=== PATIENT | male | born 1960 | race Caucasian/White ===

== ENCOUNTER 2019-10-22 02:42 | Inpatient (IN) | payer BC ==
[~2019-10-22] VITALS: Ht 177.8 cm; Wt 121.6 kg
[2019-10-22 02:48] VITALS: BP_SYST 144
--- NOTE | 2019-10-22 02:48 | NUR ---
Pt BIB BLS from [facility] and placed to ER bed 04. Pt sent for PICC line replacement. Reported that pt pulled out PICC to LUE 1 hour RUBBER WASHER. Dsg to site, no active bleeding noted. Pt alert, responsive, respirations even, mildly labored with expiratory wheezing noted, SPO2 94% RA. G-Tube in place. Pt denies c/o pain or discomfort and denies SOB. Pt only able to answer yes/no questions with nodding as this is pts reported baseline. Pt has hx of traumatic subarachnoid hemorrage. No needs verbalized at this time. Pt report given to ANDRA Rodriguez.
--- NOTE | 2019-10-22 03:10 | NUR ---
Dr. Emmanuel at bedside.
[2019-10-22] MEDS ORDERED: NACL 0.9% 1,000 ML IV ONE (03:15)
--- NOTE | 2019-10-22 03:15 | NUR ---
Spoke with pts , Romelia ([phone]) and updated on pt status. Romelia states that his cognitive status has been improving and he's been able to speak, but mostly non-verbal. Romelia states that the PICC line was initially placed r/t difficulty in obtaining IV access. Dr. Emmanuel made aware.
--- NOTE | 2019-10-22 03:15 | NUR ---
Note marita in EDM - 10/22/19 at 0607 by [email or web address] Spoke with pts , Romelia ([phone]) and updated on pt status. Romelia states that his cognitive status has been improving and he's been able to speak, but mostly non-verbal. Romelia states that the PICC line was initially placed r/t difficulty in obtaining IV access. Dr. Emmanuel made aware.
--- NOTE | 2019-10-22 03:25 | NUR ---
Lab at bedside.
--- NOTE | 2019-10-22 03:40 | NUR ---
SPO2 88% RA. Pt repositioned in bed and SPO2 increases to 93%. Dr. Emmanuel notified. No new orders.
[2019-10-22 03:46] LABS: BASOPHILS % (AUTO) 0.5 % (0.0-2.0); EOSINOPHILS # (AUTO) 0.2 K/uL (0.0-0.4); EOSINOPHILS % (AUTO) 1.8 % (0.0-4.0); HEMATOCRIT 36.5 % (36-54); HEMOGLOBIN 11.9 g/dL (14.0-18.0); LYMPHOCYTES # (AUTO) 1.6 K/uL (1.0-5.5); LYMPHOCYTES % (AUTO) 14.5 % (20.5-51.5); MEAN CORPUSCULAR HEMOGLOBIN 30 pg (27-31); MEAN CORPUSCULAR HGB CONC 33 % (32-36); MEAN CORPUSCULAR VOLUME 93 fL (79.0-98.0); MONOCYTES # (AUTO) 0.7 K/uL (0.0-1.0); NEUTROPHILS # (AUTO) 8.1 K/uL (1.8-7.7); NEUTROPHILS % (AUTO) 76.2 % (40.0-70.0); PLATELET COUNT (AUTO) 239 K/uL (130-430); RED BLOOD CELL COUNT(AUTO) 3.92 MIL/uL (4.2-6.2); RED CELL DISTRIBUTION WIDTH 14.9 % (9.0-15.0); WHITE BLOOD COUNT (AUTO) 10.7 K/uL (4.8-10.8)
[2019-10-22 04:03] LABS: CALCIUM 8.6 mg/dL (8.4-11.0); CREATININE 0.52 mg/dL (0.55-1.30)
[2019-10-22 04:09] LABS: ALBUMIN 2.6 g/dL (3.4-4.8); TOTAL BILIRUBIN 0.3 mg/dL (0.0-1.0)
--- NOTE | 2019-10-22 04:40 | NUR ---
Pt denies c/o pain or discomfort, no needs verbalized at this time. B/P 146/79, P 93, R 28, T 98.4, SPO2 94% RA. Dr. Emmanuel made aware of V/S.
[2019-10-22] MEDS ORDERED: IPRATROPIUM/ALBUTEROL SULFATE 3 ML AMPUL.NEB (DUONEB) INH ONE (04:45)
--- NOTE | 2019-10-22 05:15 | NUR ---
# 16 FR Nath catheter with use of sterile technique. Immediate return of 200 cc dharmesh urine noted. Bedside drainage bag placed below level of bladder. Urine sample collected and sent to lab. Pt tolerated procedure fair. Patient unable to toilet self.
[2019-10-22 05:25] LABS: BILIRUBIN,URINE NEGATIVE (NEGATIVE); BLOOD, URINE 2+ (NEGATIVE); CLARITY/URINE CLEAR (CLEAR); COLOR,URINE YELLOW (YELLOW); GLUCOSE,URINE NEGATIVE (NEGATIVE); KETONES,URINE NEGATIVE (NEGATIVE); LEUKOCYTE ESTERASE ,URINE NEGATIVE (NEGATIVE); NITRITE, URINE NEGATIVE (NEGATIVE); PH,URINE 7.5 (5.0-8.0); PROTEIN URINE NEGATIVE (NEGATIVE); UROBILINOGEN,URINE 0.2 (0.2-1.0)
[2019-10-22] MEDS ORDERED: PIPERACILLIN/TAZO 3.375 GM in NS 50 ML IV ONE (06:00)
[2019-10-22 06:18] LABS: BACTERIA,URINE FEW /HPF (None Seen); RBC,URINE 20-50 /HPF (0-3); WBC,URINE 0-3 /HPF (0-3)
--- NOTE | 2019-10-22 06:25 | NUR ---
Patient was turned and cleaned. New gown applied. Pt resting in bed, VSS. Will continue to monitor.
[2019-10-22] MEDS ORDERED: PIPERACILLIN/TAZOBACTAM 3.375 GM/VIAL (ZOSYN) IV ONE (06:34)
[2019-10-22] MEDS ORDERED: AZITHROMYCIN 500 MG in NS 250 ML IV ONE (06:45)
--- NOTE | 2019-10-22 06:45 | NUR ---
Dr. Emmanuel notified about pts SPO2 93%. Verbal order received to place pt on O2 at 2 LPM/NC.
[2019-10-22] MEDS ORDERED: AZITHROMYCIN 500 MG/VIAL (ZITHROMAX) IV ONE (07:08)
--- NOTE | 2019-10-22 07:39 | NUR ---
Patient will be admitted to care of [facility]. Admitted to MED SURG unit. Will go to room 134A. Belongings list completed. Complete and up to date summary report printed. SBAR report to be given at bedside with opportunity for questions.
--- NOTE | 2019-10-22 08:30 | NUR ---
Medication reconciliation completed with information provided by FACILITY. Any prior medication reconciliation on file was reviewed and corrected.
--- NOTE | 2019-10-22 08:42 | NUR ---
ADMIT NOTE Received pt from ER to the floor with a diagnosis of PICC LINE PLACEMENT/LEUKOCYTOSIS. Admission process initiated. patient oriented to pain management, safety and call light-teach back done.
[2019-10-22] MEDS ORDERED: TAMS-11 GT (08:45)
[2019-10-22] MEDS ORDERED: AZTR1VIA2 IV (08:45)
[2019-10-22] MEDS ORDERED: TYLL650 GT (08:45)
[2019-10-22] MEDS ORDERED: ALBU2.5V7 INH (08:45)
[2019-10-22] MEDS ORDERED: DOCU-144 GT (08:45)
[2019-10-22] MEDS ORDERED: HYDC2.5% TP (08:48)
[2019-10-22] MEDS ORDERED: IPRA4AER INH (08:48)
[2019-10-22] MEDS ORDERED: PRED10TA GT (08:54)
[2019-10-22] MEDS ORDERED: PANT40SU2 GT (08:54)
[2019-10-22] MEDS ORDERED: FLAPM500 IV (08:54)
[2019-10-22] MEDS ORDERED: SSREG SUBCUT (08:54)
[2019-10-22] MEDS ORDERED: LEVE500T9 GT (08:54)
--- NOTE | 2019-10-22 09:03 | NUR ---
CONSULTATION PAGED/CALLED Reason for Consultation: LEUKOCYTOSIS Person Who was Notified: DI Consulting Physician: It Consulting Manager Specialty: Ordering Physician:
[2019-10-22 09:04] VITALS: BP_SYST 114
[2019-10-22] MEDS ORDERED: INSULIN REGULAR, HUMAN 100 UNITS/ML, 10 ML VIAL (humuLIN R) SUBCUT PRN (09:30)
[2019-10-22] MEDS ORDERED: ACETAMINOPHEN 650 MG/20.3 ML UDC GT PRN (09:30)
[2019-10-22] MEDS ORDERED: ACETAMINOPHEN 325 MG TABLET GT PRN (09:30)
[2019-10-22] MEDS ORDERED: HYDROcodone/ACETAMIN 5-325 MG TAB (NORCO/ VICODIN) GT PRN (09:30)
[2019-10-22] MEDS ORDERED: ONDANSETRON HCL 4 MG/2 ML VIAL IVP PRN (09:30)
[2019-10-22] MEDS ORDERED: ALBUTEROL SULFATE 0.083% 2.5 MG/3 ML VIAL.NEB INH PRN (09:30)
[2019-10-22] MEDS ORDERED: HYDROcodone/ACETAMIN 10-325 MG TAB GT PRN (09:30)
[2019-10-22] MEDS ORDERED: LORazepam 2 MG/ML VIAL IVP PRN (09:30)
[2019-10-22 10:04] LABS: INR 1.1 (0.80-1.20); PROTHROMBIN TIME 10.7 SECS (9.5-12.5)
[2019-10-22] MEDS: IPRATROPIUM/ALBUTEROL SULFATE 3 ML AMPUL.NEB (DUONEB) INH SCH ×4 (11:23→22:00)
[2019-10-22 11:27] VITALS: BP_SYST 114
[2019-10-22 12:50] VITALS: BP_SYST 112
--- NOTE | 2019-10-22 13:45 | NUR ---
PICC LINE NURSE Spoke with Jose Alfredo SILVERMAN, the PICC Line nurse and informed him that the informed consent was signed. He stated he will be here soon.
[2019-10-22] MEDS ORDERED: PIPERACILLIN/TAZO 3.375 GM in NS 50 ML IV SCH (14:00)
[2019-10-22] MEDS ORDERED: NORMAL SALINE 5 ML DISP.SYRIN IVF SCH (14:00)
--- NOTE | 2019-10-22 15:35 | NUR ---
WOUND EVALUATION: Wound Consult received from Dr. Irvin Ochoa. Thank you Dr. Ochoa for the consult. Patient received in a Guadalupe Bed with an IsoFlex YULIET mattress, awake, alert, oriented, limited verbal interaction. 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 Past Medical History: Subarachnoid Hemorrhage, Diabetes Mellitus, Seizure Disorder, Benign Prostatic Hypertrophy. Recent Labs: CBC 10.7, RBC 3.92, hemoglobin 11.9, hematocrit 36.5, BUN 13, creatinine 0.52, GFR 172, glucose 106, POC glucose 103, AST 41, albumin 2.6, PTT 24.7. Microbiology: Blood culture results x2 in progress. Intrinsic factors that delay wound healing: Diabetes Mellitus, CVA, Hypoalbuminemia. Extrinsic factors that delay wound healing: Decreased mobility. Wound Assessment: 1. Left Kate-Rectal area: Recent surgical site, present on admission. Site was closed with blue sutures, with one small area that is open. Open area of incision has 100% white tissue. No odor, no drainage. Kate-wound intact. Measures 1.5 cm x 0.5 cm x 0.7 cm. Recommend: Cleanse wound with normal saline. Apply moisture barrier cream to kate-wound. Apply Hydrogel to wound. Pack wound with 1/4 inch Iodoform packing strip. Cover with foam dressing. Perform wound care daily, and as needed for dressing soiling or dislodgement. 2. Sacral area: Deep excoriation. Patient scratched and dug area with his hand, causing the wound before his hand could be pulled away. Wound bed has 100% red tissue. No odor, no drainage. Kate-wound intact. Measures 1.5 cm x 1.4 cm. Recommend: Cleanse wound with normal saline. Apply moisture barrier cream to wound and kate-wound. Apply Hydrogel to any portion of wound that is not covered by moisture barrier cream. Cover with foam dressing. Perform wound care daily, and as needed for dressing soiling or dislodgement. Also recommend: Reposition patient side to side only every 2 hours with pillow support and off-load pressure areas with pillows for pressure re-distribution. Offload, elevate and float bilateral heels with pillows. Perform skin care and monitor skin integrity Q shift. Use moisture barrier cream on buttocks and other moisture susceptible areas QID and as needed for soiling. Initiate low air-loss therapy.
--- NOTE | 2019-10-22 16:00 | NUR ---
WOUND CARE WITH TECHNICIAN SUBMARINE CABLE EQUIPMENT * Left Annabelle-Rectal area: Pt had recent rectal surgery and the site was closed with blue sutures, with one small area that is open. The open area of incision has 100% white tissue, no odor, no drainage. Annabelle-wound intact. Measures 1.5 cm x 0.5 cm. Wound cleansed with normal saline. Moisture barrier cream applied to annabelle-wound. Hydrogel applied to wound bed and packed with 1/4 inch Iodoform packing strip. Covered with a foam dressing. Sacral area: Deep excoriation. Patient scratched and dug area with his hand, causing the wound before his hand could be pulled away. Wound bed has 100% red tissue. No odor, no drainage. Annabelle-wound intact. Measures 1.5 cm x 1.4 cm. Wound cleansed with normal saline. Moisture barrier cream applied to wound and annabelle-wound area. Hydrogel applied to any portion of wound that is not covered by moisture barrier cream. Covered with a foam dressing. Pt also placed onto low air loss mattress and repositioned with pillow support and bilat heels off-loaded for skin care. Pt tolerated well. All precautions remain in place.
[2019-10-22 16:41] VITALS: BP_SYST 116
[2019-10-22] MEDS: NORMAL SALINE 5 ML DISP.SYRIN IVF SCH ×2 (16:55→22:59)
[2019-10-22] MEDS: AZTREONAM 1 GM in NS 50 ML IV SCH ×2 (16:56→22:58)
[2019-10-22] MEDS: metroNIDAZOLE 500 mg/NS 100 ML IV SCH ×2 (16:56→22:57)
[2019-10-22 20:00] VITALS: BP_SYST 116
--- NOTE | 2019-10-22 20:00 | NUR ---
RECEIVED PT IN BED V/S AND ASSESSMENT DONE ,PM CARE GIVEN REPOSITIONED MADE COMFORTABLE ,PT AND FAMILY AWAITING OICC LINE INSERTION,WAITING ON PICC LINE NURSE,IV MEDS GIVEN G TUBE WITH GLUCERNA 1.5 @40 CC.
--- NOTE | 2019-10-22 20:36 | NUR ---
DIET/G-TUBE/PICC LINE Per the pt's Adia the pt has been eating finely ground foods at [facility] and does use the G-Tube part of the time to meet the pt's nutritional need. I called [facility] and spoke with Roger SILVERMAN regarding the pt's diet vs G-Tube per pt's request. She stated that she remembers him eating finely ground foods and having Glucerna 1.5 via G-tube for 12 hours to supplement the pt's nutrition, unfortunately she was unable to fax me the diet order from the facility that stated he was on that diet. The paperork we received only states the enteral feeding of Glucerna 1.5 at 40 ml/hr via g-tube. Adia was also upset that the pt has not received the PICC line yet since the pt has been here since this morning. I informed her that I spoke with Biju SILVERMANarchitect in training here who reassured me that Jose Alfredo the PICC line nurse will be here zaina. I called and spoke with the pt's Adia regarding this issue and the pt's diet issue and she stated she understood and that she hopes that her gets the PICC line inserted tonight so that he can go back to the facility and continue his rehabilitation.
[2019-10-22] MEDS: HYDROCORTISONE 2.5%, 30 GM TOPICAL CREAM TP SCH (21:00)
[2019-10-22] MEDS: LevETIRAcetam 500 MG/5 ML UDC ORAL LIQUID GT SCH (21:00)
[2019-10-22] MEDS ORDERED: TAMSULOSIN HCL 0.4 MG CAP GT SCH (21:00)
[2019-10-23 00:23] VITALS: BP_SYST 116
[2019-10-23] MEDS: metroNIDAZOLE 500 mg/NS 100 ML IV SCH ×3 (05:52→22:54)
[2019-10-23] MEDS: NORMAL SALINE 5 ML DISP.SYRIN IVF SCH ×3 (05:56→22:54)
[2019-10-23] MEDS: AZTREONAM 1 GM in NS 50 ML IV SCH ×3 (05:57→21:45)
[2019-10-23 06:33] LABS: BASOPHILS % (AUTO) 0.4 % (0.0-2.0); EOSINOPHILS # (AUTO) 0.3 K/uL (0.0-0.4); EOSINOPHILS % (AUTO) 2.4 % (0.0-4.0); HEMATOCRIT 34.3 % (36-54); HEMOGLOBIN 11.1 g/dL (14.0-18.0); LYMPHOCYTES % (AUTO) 8.9 % (20.5-51.5); MEAN CORPUSCULAR HEMOGLOBIN 30 pg (27-31); MEAN CORPUSCULAR HGB CONC 32 % (32-36); MEAN CORPUSCULAR VOLUME 94 fL (79.0-98.0); MONOCYTES # (AUTO) 0.6 K/uL (0.0-1.0); MONOCYTES % (AUTO) 5.1 % (1.7-9.3); NEUTROPHILS # (AUTO) 9.4 K/uL (1.8-7.7); NEUTROPHILS % (AUTO) 83.2 % (40.0-70.0); PLATELET COUNT (AUTO) 254 K/uL (130-430); RED BLOOD CELL COUNT(AUTO) 3.66 MIL/uL (4.2-6.2); RED CELL DISTRIBUTION WIDTH 15.3 % (9.0-15.0); WHITE BLOOD COUNT (AUTO) 11.3 K/uL (4.8-10.8)
[2019-10-23] MEDS: IPRATROPIUM/ALBUTEROL SULFATE 3 ML AMPUL.NEB (DUONEB) INH SCH ×3 (07:12→16:28)
--- NOTE | 2019-10-23 07:15 | NUR ---
OPENING NOTES PT AWAKE, ALERT, AND ORIENTED TIMES ONE. RE-ORIENTED TO TIME AND PLACE. NONLABORED BREATHING NOTED ON ROOM AIR, O2 AT 94%. NO ACUTE DISTRESS NOTED. QURESHI CATHETER INTACT AND PATENT, DRAINING WELL. IV LINE INTACT AND PATENT, NO SIGNS OF INFILTRATION NOTED, FLUIDS RUNNING ORDERED PER MD. G-TUBE INTACT AND PATENT, CHECKED PLACEMENT, 5ML RESIDUAL, TUBE FEEDING RUNNING ORDERED PER MD, TOLERATING WELL HOB ELEVATED. PT DENIES PAIN AT THIS TIME. ALL NEEDS MET. CALL LIGHT IN REACH. FALL AND ASPIRATION PRECAUTIONS IN PLACE. CONTINUE TO MONITOR.
[2019-10-23 07:55] LABS: CALCIUM 8.9 mg/dL (8.4-11.0); CREATININE 0.53 mg/dL (0.55-1.30); POTASSIUM 3.8 mmol/L (3.5-5.1)
[2019-10-23 08:00] VITALS: BP_SYST 113
[2019-10-23] MEDS ORDERED: LANSOPRAZOLE 30 MG CAPSULE.DR GT SCH (09:00)
[2019-10-23] MEDS ORDERED: PREDNISONE 10 MG TABLET GT SCH (09:00)
[2019-10-23] MEDS: LevETIRAcetam 500 MG/5 ML UDC ORAL LIQUID GT SCH ×2 (09:04→20:45)
[2019-10-23] MEDS: HYDROCORTISONE 2.5%, 30 GM TOPICAL CREAM TP SCH ×2 (09:04→20:46)
--- NOTE | 2019-10-23 09:04 | NUR ---
ROUTINE MEDS ROUTINE MEDS ADMINISTERED ORDERED PER MD, EDUCATION GIVEN, TOLERATED WELL. NO ACUTE DISTRESS NOTED. ALL NEEDS MET. CALL LIGHT IN REACH. CONTINUE TO MONITOR.
--- NOTE | 2019-10-23 10:00 | NUR ---
RECEIVED TWO CALLS FROM PICC LINE NURSES, VERBALIZING THEY WILL BE HERE SOON.
--- NOTE | 2019-10-23 10:27 | NUR ---
Nutrition Update Joseph Scale 14 noted. Pt admitted for PICC line replacement and leukocytosis. Diet: Glucerna 1.5 at 40 ml/hr, Free Water Flush: 100 ML Q 6 HR via GT BMI: 38.5 kg/m2 RD to follow per nutrition care standards.
--- NOTE | 2019-10-23 11:53 | NUR ---
WOUND CARE AND PERINEAL CARE DONE WITH ANDRA MITCHELL, EDUCATION GIVEN, TOLERATED WELL.
[2019-10-23 12:00] VITALS: BP_SYST 122
--- NOTE | 2019-10-23 12:31 | NUR ---
DC PLANNING: LATE ENTRY FOR AM NOTES PATIENT WAS SENT FROM [facility] AROUND 3 AM, TEL # [phone]. SPOKE TO HOMERO ERICKSON THIS AM AND LEIGHTON CEDILLO CM # [phone], AWAITING FOR [facility] TO CALL [facility] CED[facility]O INTAKE TO GET THE AUTHORIZATION AND PICC REPLACEMENT AT [facility]. CONTINUE FOLLOW UP WITH DCP NEEDED. JCMark RN CM
--- NOTE | 2019-10-23 12:54 | NUR ---
ACCUCHECK ACCUCHECK DONE, EDUCATION GIVEN, TOLERATED WELL. RESULT 134 MG/DL, NO INSULIN COVERAGE NEEDED PER [employer] [employer]
--- NOTE | 2019-10-23 13:00 | NUR ---
SPOKE TO HOUSE SUP, LEFT 3 VOICEMAILS TO PICC LINE NURSE. AWAITING FOR PICC LINE INSERTION.
--- NOTE | 2019-10-23 13:36 | NUR ---
DC PLANNING CHART REVIEWED, PATIENT WAS SENT FROM [facility] [place] FOR PICC REPLACEMENT, SPOKE TO SPOUSE LISSETTE, DCP- AGREED TO SEND PATIENT BACK TO [facility] ONCE PICC PLACEMENT DONE, DUE TO INSURANCE [employer]- WILL NEED A NEW AUTH FORM [facility]- INA ERICKSON WAS AWARE OF AUTH THSI AM. CONTINUE FOLLOW UP DCP NEEDED NAVEED SILVERMAN CM Addendum: 10/23/19 at 1357 by David Guerin RN DC PLANNING FOLLOW UP WITH [facility] [place] # [phone] HOMERO/ DRE, SHE HAS REPORTED TO THEIR ADMISSION DEPARTMENT FOR THE NEW AUTHORIZATION AND TRANSPORTATION INFORMATION FROM [facility], CURRENTLY PENDING AND CURRENTLY PENDING PICC REPLACEMENT WELL. NAVEED SILVERMAN CM Addendum: 10/23/19 at 1522 by David Guerin RN DC PLANNING SPOKE TO ADMISSION OF [facility] [place] # [phone], NEW AUTHORIZATION FROM [employer] IS STILL PENDING AT CURRENT TIME, WILL FOLLOW UP AT 4 PM TODAY. NAVEED SILVERMAN CM Addendum: 10/23/19 at 1602 by David Guerin RN DC PLANNING [facility] AUTHORIZATION IS STILL PENDING AT CURRENT TIME, GOLDEN CABELLO # [phone] AND [facility] ARE AWARE OF PENDING AUTHORIZATION, ONCE AUTHORIZATION DONE, [facility] [place] WILL CALL NURSING STATION TO TRANSFER PATIENT BACK TO [facility] TODAY. ADDRESS: [address] [place] [id number], TEL [phone] TRANSPORTATION: [facility]IA [facility] TEL # [phone], PLACED " WILL CALL". CONTINUE FOLLOW UP WITH DCP NEEDED. NAVEED SILVERMAN CM
--- NOTE | 2019-10-23 14:37 | NUR ---
ROUTINE MEDS ROUTINE MEDS ADMINISTERED ORDERED PER MD, EDUCATION GIVEN, TOLERATED WELL. NO ACUTE DISTRESS NOTED. ALL NEEDS MET. CALL LIGHT IN REACH. CONTINUE TO MONITOR.
--- NOTE | 2019-10-23 14:45 | NUR ---
PICC LINE INSERTED BY PICC LINE NURSE, CONSENT HAS BEEN SIGNED
--- NOTE | 2019-10-23 15:17 | NUR ---
DRE, DIRECTOR [facility] SPOKE TO [facility] CNO REGARDING COVID 19 TESTING. CNO VERBALIZED THAT PATIENT DOES NOT MEET CRITERIA TO GET TESTED. DRE VERBALIZED UNDERSTANDING.
--- NOTE | 2019-10-23 15:18 | NUR ---
CHEST X-RAY DONE. VERIFIED PLACEMENT.
[2019-10-23 16:00] VITALS: BP_SYST 120
--- NOTE | 2019-10-23 18:07 | NUR ---
F/U DC planning follow up on transfer, called Teresa at [phone] to follow up with [facility] Authorization, Teresa stated to call Jodi in admissions at the location where the patient will be transferring. Called Jodi at [phone], left a voicemail to call back at nursing station. Informed primary RN, Cheryl SILVERMAN.
--- NOTE | 2019-10-23 19:10 | NUR ---
CLOSING NOTES/ SPOKE TO FELIPE FROM [facility] [place] REGARDING D/C; PICK-UP IN THE MORNING TOMORROW PT AWAKE, ALERT, AND ORIENTED TIMES ONE IN BED. RE-ORIENTED TO TIME AND PLACE. NONLABORED BREATHING NOTED ON ROOM AIR, O2 AT 96%. NO ACUTE DISTRESS NOTED. QURESHI CATHETER INTACT AND PATENT, DRAINING WELL. PICC LINE INTACT AND PATENT ON RIGHT UPPER ARM. G-TUBE INTACT AND PATENT, CHECKED PLACEMENT, NO RESIDUAL NOTED, TUBE FEEDING RUNNING ORDERED PER MD, TOLERATING WELL HOB ELEVATED. PT DENIES PAIN AT THIS TIME. ALL NEEDS MET. CALL LIGHT IN REACH. FALL AND ASPIRATION PRECAUTIONS IN PLACE. WILL ENDORSE TO NOC NURSE, ANDRA DESAI.
--- NOTE | 2019-10-23 19:30 | NUR ---
Opening note Received patient awake, AOx2 and no s/sx of distress, nonlabored breathing non room air. He is resting in bed on YULIET mattress, side rails up 3x. Patient has G-tube feeding set at 40 ml/hr. He has PIIC on COLLEEN and I placed sign above headboard indicating 'no B/P and no blood draw to COLLEEN', Bed is locked in lowest position on, bed alarm on and call light near.
--- NOTE | 2019-10-23 19:31 | NUR ---
[facility] PER [facility] AUTHORIZATION FOR TRANSFER BACK WAS APPROVED BY [place]. FACILITY IS UN ABLE TO TAKE THE PATIENT TONIGHT BUT WILL TAKE THE PATIENT BETWEEN 6-7 AM 10/24/19
[2019-10-23 20:30] VITALS: BP_SYST 139
--- NOTE | 2019-10-23 21:53 | NUR ---
Antibiotic Due antibiotic, infusing; educated on side effects and he listened. Patient tolerating, resting in bed no s/sx of distress. call light w/in reach.
--- NOTE | 2019-10-23 22:13 | NUR ---
[facility]ED [facility] I CALLED [facility] I SPOKE WITH MANY MANAGER SUPPLIER ARRANGED TRANSFER FOR TOMORROW 10/24/2019 PICKED UP TIME WILL BE AT O600 PATIENT IS GOING TO [facility]
--- NOTE | 2019-10-24 00:14 | NUR ---
Accu check Fingerstick bg test done w/ result of 94 mg/dL; no coverage due
[2019-10-24 00:30] VITALS: BP_SYST 130
--- NOTE | 2019-10-24 02:05 | NUR ---
Resting Patient is resting in bed w/eyes open, he is not sleeping. No s/sx of distress and nonlabored breathing noted. Tolerating tube feeding. Safety and aspiration precautions in place.
--- NOTE | 2019-10-24 03:10 | NUR ---
RN rounds / water flush Patient tolerating feeding, 5 ml residual noted and returned. Provided 100 ml free water flush.
[2019-10-24] MEDS: AZTREONAM 1 GM in NS 50 ML IV SCH (05:15)
[2019-10-24] MEDS: NORMAL SALINE 5 ML DISP.SYRIN IVF SCH (05:23)
--- NOTE | 2019-10-24 05:28 | NUR ---
Patient care / wound care Sacral dressing change done and pictures taken. Due antibiotic given and infusing well. Fingerstick accu check result is 111mg/dL and no coverge due.
[2019-10-24] MEDS: metroNIDAZOLE 500 mg/NS 100 ML IV SCH (05:47)
[2019-10-24 05:56] VITALS: BP_SYST 124
--- NOTE | 2019-10-24 06:00 | NUR ---
REPORT TO FACILITY Called report to [facility] in [place] and s/w JEAN MARIE Puga
--- NOTE | 2019-10-24 06:01 | NUR ---
Report to ambulance Gave SBAR report to GIANNI Yao from [facility]
--- NOTE | 2019-10-24 06:15 | NUR ---
D/C Patient Patient's medication reconciliation form and D/C instructions, Exit Care given in packet w/ records to ambulance team. Patient unable to verbalize understanding. Taken by amie to [facility]. Patient in stable condition, ID band removed. G-tube was clamped. PIIC to COLLEEN patent. Nath catheter in place and securement device in place. All belongings sent with patient.
== END 2019-10-24 06:18 | DRG 315 ==
LOC: SED 02:42 → SMU 07:15
PROVIDERS: ADMIT Preventive Medicine Preventive Medicine/Occupational Environmental Medicine; ATTEND Preventive Medicine Preventive Medicine/Occupational Environmental Medicine
PROC: 02HV33Z Insertion of Infusion Device into Superior Vena Cava, Percutaneous Approach (ICD-10-PCS; principal; 2019-10-23)
DX: T82.514A Breakdown (mechanical) of infusion catheter, initial encounter (principal); K61.1 Rectal abscess; N39.0 Urinary tract infection, site not specified; E11.9 Type 2 diabetes mellitus without complications; G40.909 Epilepsy, unspecified, not intractable, without status epilepticus; N40.0 Benign prostatic hyperplasia without lower urinary tract symptoms; Y82.8 Other medical devices associated with adverse incidents; Y92.89 Other specified places as the place of occurrence of the external cause; Z86.73 Personal history of transient ischemic attack (TIA), and cerebral infarction without residual deficits
CPT/HCPCS: 36415; 71045; 80048; 80053; 81000-TC; 82962; 83605; 83880; 85025; 85610-TC; 85730-TC; 87040-TC; 87081; 93005; 94640; 94760; 96361; 96365; 96367; 99285; C1751; J0456; J1815; J2543; J3490; J7030; J7512; J7613